=== PATIENT | male | born 1970 | race Caucasian/White ===

== ENCOUNTER 2020-02-07 08:27 | Day surgery (SDC) | payer OTHER | END 2020-02-07 13:13 | disposition home or self-care (01) | LOC: AMB-ENDOS 08:27 | PROVIDERS: ATTEND Surgery | DX: K62.89 Other specified diseases of anus and rectum (principal); K64.1 Second degree hemorrhoids; Z20.828 Contact with and (suspected) exposure to other viral communicable diseases ==

== ENCOUNTER 2021-11-11 14:47 | Emergency (ER) | payer OTHER ==
[~2021-11-11] VITALS: Ht 177.8 cm; Wt 79.4 kg
[2021-11-11] MEDS ORDERED: GLIPIZIDE XL10 MG (15:53)
== END 2021-11-11 17:57 | disposition home or self-care (01) ==
LOC: ER 14:47
DX: E11.65 Type 2 diabetes mellitus with hyperglycemia (principal); Z79.84 Long term (current) use of oral hypoglycemic drugs

== ENCOUNTER 2022-01-25 14:00 | Emergency (ER) | payer OTHER ==
[~2022-01-25] VITALS: Ht 177.8 cm; Wt 79.4 kg
[~2022-01-25 14:00] MED LIST: GLIPIZIDE XL10 MG
[2022-01-25] MEDS ORDERED: BUTALB-ASPIRIN1 EACH PO (17:38)
== END 2022-01-25 18:11 | disposition home or self-care (01) ==
LOC: ER 14:00
DX: R51.9 Headache, unspecified (principal)

== ENCOUNTER 2022-07-07 09:41 | Emergency (ER) | payer OTHER ==
[~2022-07-07] VITALS: Ht 177.8 cm; Wt 81.6 kg
[~2022-07-07 09:41] MED LIST changes: +BUTALB-ASPIRIN1 EACH PO
[2022-07-07] MEDS ORDERED: BUTALB-ASPIRIN1 EACH PO (13:20)
[2022-07-07] MEDS ORDERED: NORFLEX100MG PO (13:20)
[2022-07-08] MEDS ORDERED: FLONASE ALLERG9.9 ML NASAL (21:22)
[2022-07-08] MEDS ORDERED: ZITHROMAX500 MG PO (21:24)
== END 2022-07-07 13:31 | disposition home or self-care (01) ==
LOC: ER 09:41
DX: R51.9 Headache, unspecified (principal); R09.81 Nasal congestion; Z20.822 Contact with and (suspected) exposure to COVID-19

== ENCOUNTER 2022-07-08 15:45 | Emergency (ER) | payer OTHER ==
[~2022-07-08] VITALS: Ht 177.8 cm; Wt 81.6 kg
[~2022-07-08 15:45] MED LIST changes: +NORFLEX100MG PO
[2022-07-08] MEDS ORDERED: FLONASE ALLERG9.9 ML NASAL (21:22)
[2022-07-08] MEDS ORDERED: ZITHROMAX500 MG PO (21:24)
== END 2022-07-08 21:53 | disposition home or self-care (01) ==
LOC: ER 15:45
DX: G43.909 Migraine, unspecified, not intractable, without status migrainosus (principal); J32.9 Chronic sinusitis, unspecified

== ENCOUNTER 2023-04-22 19:51 | Emergency (ER) | payer OTHER ==
[~2023-04-22] VITALS: Ht 177.8 cm; Wt 79.4 kg
[~2023-04-22 19:51] MED LIST changes: +FLONASE ALLERG9.9 ML NASAL; +ZITHROMAX500 MG PO
[2023-04-22 21:14] LABS: HEMATOCRIT 46.2 % (39.0-48.0); HEMOGLOBIN 15.8 g/dL (13-16.00); MEAN CELL VOLUME 96.4 fL (80.0-100.00); MEAN CORPUSCULAR HGB CONC 34.3 g/dl (32.0-36.0); PLATELET COUNT 256 K/uL (150-450); RED CELL DISTRIBUTION WIDTH 12.5 % (11.5-14.5)
[2023-04-22 21:33] LABS: CALCIUM 8.7 mg/dL (8.5-10.1); CREATININE SERUM 1.1 mg/dL (0.70-1.30); GFR 70.29; POTASSIUM 4.04 mEq/L (3.5-5.1)
[2023-04-22 22:30] LABS: PH,URINE 6.5 (5.0-8.0); URINE APPEARANCE Clear; URINE BILIRRUBIN Negative (NEGATIVE); URINE BLOOD Negative; URINE COLOR Yellow; URINE GLUCOSE Negative (NEGATIVE); URINE LEUKOCYTE Negative; URINE NITRATE Negative; URINE PROTEIN Trace (NEGATIVE)
[2023-04-22 22:31] LABS: URINE BACTERIA 15.1 uL (0.0-1933); URINE RBC 15.5 uL (0.0-20.8); URINE WBC 2.9 uL (0.0-23.2)
== END 2023-04-23 01:18 | disposition home or self-care (01) ==
LOC: ER 19:52
PROVIDERS: Emergency Medicine
DX: K52.9 Noninfective gastroenteritis and colitis, unspecified (principal)

== ENCOUNTER 2023-04-29 08:41 | Outpatient (CLI) | payer OTHER | END 2023-04-29 08:50 | disposition home or self-care (01) | LOC: SONOGRAMA 08:41 | PROVIDERS: ATTEND Internal Medicine Gastroenterology | DX: R10.84 Generalized abdominal pain (principal) ==

== ENCOUNTER 2024-03-10 08:36 | Outpatient (CLI) | payer OTHER | END 2024-03-10 08:48 | disposition home or self-care (01) | LOC: TOM 08:36 | PROVIDERS: ATTEND Internal Medicine Gastroenterology | DX: K52.9 Noninfective gastroenteritis and colitis, unspecified (principal) ==

== ENCOUNTER 2025-06-08 08:51 | Outpatient (CLI) | payer OTHER | END 2025-06-08 09:16 | disposition home or self-care (01) | LOC: RAD 08:51 | PROVIDERS: ATTEND Orthopaedic Surgery Orthopaedic Surgery of the Spine | DX: M43.22 Fusion of spine, cervical region (principal) ==